=== PATIENT | female | born 1950 | race Caucasian/White ===

== ENCOUNTER 2022-02-28 13:21 | Outpatient (CLI) | payer MEDICARE, SELFPAY ==
[2022-02-28 16:09] LABS: Chloride* 102 mmol/L (96-114); Potassium* 4.2 mmol/L (3.6-5.1); Sodium* 137 mmol/L (135-149)
[2022-02-28 16:11] LABS: Cholesterol* 208 mg/dL (90-199); Creatinine* 0.7 mg/dL (0.5-1.5); Estimated Glomerular Filt Rate 94 ml/min
[2022-02-28 16:12] LABS: Blood Urea Nitrogen* 18 mg/dL (7-30); Calcium* 9.8 mg/dL (8.4-10.6); Carbon Dioxide* 27 mmol/L (20-32); Glucose* 110 mg/dL (60-115); Triglycerides* 134 mg/dL (40-149)
[2022-02-28 16:13] LABS: HDL Cholesterol* 94 mg/dL (>=50); LDL Cholesterol Calculated 87 mg/dL (<100)
== END 2022-02-28 13:22 | disposition home or self-care (01) ==
PROVIDERS: PCP Family Medicine; Visit Provider Family Medicine
DX: Z01.818 Encounter for other preprocedural examination (principal); Z13.6 Encounter for screening for cardiovascular disorders
CPT/HCPCS: 80048; 80061

== ENCOUNTER 2022-03-05 09:28 | Emergency (ER) | payer MEDICARE, SELFPAY ==
[2022-03-05 09:45] VITALS: BP 119/80; PULSE 72; RESP 18; TEMP 37.4; O2SAT 97; BMI 22.8
--- NOTE | 2022-03-05 09:53 | ED.GENADULT ---
HPI - General Adult General Time Seen by Provider: 09:53 Date Seen: 03/05/22 Chief complaint: Extremity Pain/Injury, Lower Stated complaint: Knee pain after surgery Time Seen by Provider: 03/05/22 09:52 Source: patient and RN notes reviewed Mode of arrival: ambulatory Limitations: no limitations History of Present Illness HPI narrative: Patient is a 71-year-old female coming in with right knee pain that is quite severe. She had arthroscopic knee surgery and meniscectomy on . She states she did have a block. She felt it was wearing off yesterday morning. She did walk some yesterday. By last night her knee pain was severe, she could not get comfortable. She has Vistaril and Vicodin to take, she took 2 Vicodin last night and it did not touch her knee pain. She thinks she may had some shortness of breath last night but none now. She does have a history of a blood clot about 7 years ago. She is on an 81 mg aspirin daily. Denies any fevers. Her leg has been wrapped since surgery. Patient is a prior OR tech. Related Data Home Medications Medication Instructions Recorded Confirmed multivitamin 1 tab PO QDAY 02/28/22 02/28/22 naproxen sodium 220 mg tablet 220 mg PO BID PRN 02/28/22 02/28/22 (Aleve) hydrocodone 5 mg-acetaminophen 325 tab 03/05/22 mg tablet hydroxyzine pamoate 25 mg capsule mg 03/05/22 Allergies Allergy/AdvReac Type Severity Reaction Status Date / Time Sulfa Antibiotics Allergy Mild Hives Uncoded 02/28/22 12:46 Review of Systems Status of ROS: Reports: 6 or more systems reviewed and unremarkable except as noted in History and below [facility] Medical History (Updated 03/05/22 @ 12:03 by Lena Black MD) Hearing loss History of pulmonary embolism Surgical History (Updated 02/28/22 @ 23:43 by Rico Muro MD) History of reduction mammoplasty (1984) History of tonsillectomy History of total knee replacement (12/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) Status post arthroscopy of left shoulder Status post arthroscopy of right shoulder (05/30/18) Family History (Updated 02/23/22 @ 09:22 by Apolinar Sy) Father Stroke Social History (Updated 02/23/22 @ 09:22 by Apolinar Sy) Narrative: , 2 kids Non-smoker Social EtOH Smoking Status: Never smoker How often do you have a drink containing alcohol: 2-4 times a month AUDIT-C Alcohol total score: 2 Non-prescribed substance use: denies use Little interest or pleasure in doing things: not at all Feeling down, depressed, or hopeless: not at all service: No Exam Const: Vital Signs, click to edit/add: Vital Signs - 24 hr 03/05/22 09:45 Temperature 99.3 F Pulse Rate [Pulse Oximeter] 72 Respiratory Rate 18 Blood Pressure [Ri ght Upper Arm] 119/80 Pulse Oximetry 97 Oxygen Delivery Me thod Room Air Documenting provider has reviewed patient's vital signs: yes Common normals: no apparent distress, average body habitus, oriented x3, no limitations, healthy appearing and alert General appearance: cooperative, comfortable and well kempt HENMT: Common normals: normocephalic, head/scalp atraumatic and hearing grossly normal bilaterally Head and scalp: normocephalic and atraumatic Eye: Common normals: PERRL, EOMs intact bilaterally, conjunctivae normal and no scleral icterus Conjunctiva: conjunctiva(e) normal Pupil: PERRL Neck & C-Spine: Common normals: full ROM, no lymphadenopathy, supple, no meningeal signs, no JVD and thyroid normal Thyroid: thyroid normal Resp: Common normals: normal respiratory effort, no retractions, no use of accessory muscles and clear to auscultation bilaterally Auscultation: clear to auscultation bilaterally Cardio: Common normals: no JVD, regular rate, regular rhythm, S1 normal heart sound, S2 normal heart sound, no gallops, no clicks and no murmurs Rate: regular rate Rhythm: regular rhythm Heart sounds: S1 normal and S2 normal Extremity: Other: Her Karel wraps were removed. The dressing over the right knee was removed. There was some dried blood within the dressing in on the medial side of the knee. On removal of the dressings, she has 2 port sites medially and laterally over the knee joint. There is ecchymosis anteriorly over the knee. She is able to straight leg raise. She has some mild tenderness throughout the anterior oral lateral and medial joint line. There is some mild warmth but nothing in about of what I would expect post procedure. There is no significant calf tenderness or lower extremity pain or swelling. She has normal sensation distally and no swelling in the foot. Neuro: Common normals: oriented x3 Sensorium/orientation: alert Meningeal signs: no meningeal signs Psych: Appearance: well kempt Course Course Hospital Course: We will obtain Doppler of this right lower extremity to rule out blood clot. Will give her 5 mg oxycodone and see if that helps with the pain. I do wonder if the block just Donald wore off last night and that is where the pain started to increase. We will see if the oxycodone helps. Will also get a baseline CBC and C reactive protein but doubt infection at this time. Vital Signs Vital signs: Initial Vital Signs Temperature 99.3 F 03/05/22 09:45 Temperature Source Temporal Artery Scan 03/05/22 09:45 Pulse Rate 72 03/05/22 09:45 Respiratory Rate 18 03/05/22 09:45 Blood Pressure 119/80 03/05/22 09:45 Blood Pressure Mean 93 03/05/22 09:45 Blood Pressure Position Supine 03/05/22 09:45 Pulse Oximetry 97 03/05/22 09:45 Oxygen Delivery Method 03/05/22 09:45 Vital Signs Temperature 99.3 F 03/05/22 09:45 Pulse Rate 72 03/05/22 09:45 Respiratory Rate 18 03/05/22 09:45 Blood Pressure 119/80 03/05/22 09:45 Pulse Oximetry 97 03/05/22 09:45 Oxygen Delivery Method 03/05/22 09:45 Temperature 99.3 F 03/05/22 09:45 Pulse Rate 72 03/05/22 09:45 Respiratory Rate 18 03/05/22 09:45 Blood Pressure 119/80 03/05/22 09:45 Pulse Oximetry 97 03/05/22 09:45 Oxygen Delivery Method 03/05/22 09:45 Medical Decision Making Lab Data Lab results reviewed: Yes I reviewed the patient's lab results Labs: Lab Results 03/05/22 03/05/22 Range/Units 10:20 10:20 WBC 7.17 (4.50-11.00) K/uL RBC 4.53 (4.00-5.20) m/uL Hgb 13.3 (12.0-16.0) gm/dL Hct 40.5 (33.0-51.0) % MCV 89 (80-100) fL MCH 29 (26-34) pg MCHC 33 (32-36) gm/dL RDW Coeff of Elpidio 12.8 (11.5-15.5) % Plt Count 203 (140-440) K/uL Neut % (Auto) 73.2 H (42.0-72.0) % Lymph % (Auto) 9.8 L (20-44) % [place] % (Auto) 16.7 H (0.0-11.0) % Eos % (Auto) 0.1 (0.0-7.0) % Baso % (Auto) 0.1 (0.0-3.0) % Neut # (Auto) 5.20 (1.7-7.0) K/uL Lymph # (Auto) 0.70 L (0.90-2.90) K/uL [place] # (Auto) 1.20 H (0.00-0.90) K/UL Eos # (Auto) 0.01 (0.00-0.50) K/uL Baso # (Auto) 0.01 (0.00-0.30) K/uL Abs Immat Gran (auto) 0.01 (0.00-0.30) K/uL C-Reactive Protein 2.8 H (0.5-1.0) mg/dL Imaging Data Venous US: Attestation: I have reviewed the pertinent imaging results. Radiologist's impression: Patient: JASMEET JUNG Facility:?[facility] Patient ID:?[id number] Site Patient ID:?[id number]. Site :?[id number] Study:?US Extremity Right LEV RT-03/05/2022 11:09:01 AM Ordering Physician:Chani Paredes Final Report: CLINICAL HISTORY: Increasing pain right knee and right calf; recent right knee surgery TECHNIQUE: A compression venous ultrasound exam was performed of the right lower extremity using vickers-scale imaging, color Doppler and spectral Doppler analysis. FINDINGS: Sonographic imaging of the right lower extremity demonstrates normal compressibility and color Doppler venous blood flow within the common femoral vein, deep femoral vein, and the proximal greater saphenous vein. Within the thigh, the femoral vein is patent and compressible. At a lower level, the popliteal and posterior tibial veins also show normal compressibility and color Doppler venous blood flow. Limited imaging of the contralateral groin demonstrates a normal spectral waveform and color Doppler venous blood flow within the left common femoral vein. Right knee effusion IMPRESSION: Normal venous ultrasound exam. No evidence of deep vein thrombosis within the right lower extremity. Dictated by Ricardo Rankin MD @ 03/05/2022 11:35:07 AM (Electronic Signature) Critical Care Time Critical Care Time Critical Care Time: No Discharge Plan Discharge Clinical Impression: Post-operative pain Patient Disposition: Home, Self-Care Condition: Stable Instructions: Pain Management After Surgery (DC) Additional Instructions: Continue to follow-up postoperative restrictions and wound management as per your surgeon. Can use oxycodone initially, a few pills were prescribed from [facility]. If you need more, you will need to get this from her surgeon. When you are able, transition back to the Vicodin from the oxycodone. Can use Tylenol with the oxycodone per Tylenol bottle directions. Note that Vicodin has Tylenol in it though. Can continue with ibuprofen as per bottle directions as well. Ice. Activity Detail: As per your surgeon Prescriptions: No Action multivitamin Tablet 1 tab PO QDAY naproxen sodium [Aleve] 220 mg tablet 220 mg PO BID PRN hydrocodone-acetaminophen 5-325 mg tablet Label Comments: TAKE 1-2 TABLETS BY MOUTH EVERY 4-6 HOURS NEEDED FOR PAIN. MAX 8 TABLETS PER DAY hydroxyzine pamoate 25 mg capsule Label Comments: TAKE 1 TO 2 CAPSULES BY MOUTH EVERY 4 TO 6 HOURS NEEDED FOR MUSCLE SPASMS Follow Up/Referrals: Rico Muro MD [Primary Care Provider] - Stand Alone Forms: MyHealth Info Instructions
--- NOTE | 2022-03-05 10:01 | CRLHL7_ITS ---
For Patients: As a result of the Century Cures Act, medical imaging exams and procedure reports are released immediately into your electronic medical record. You may view this report before your referring provider. If you have questions, please contact your health care provider. CLINICAL HISTORY: Increasing pain right knee and right calf; recent right knee surgery TECHNIQUE: A compression venous ultrasound exam was performed of the right lower extremity using vickers-scale imaging, color Doppler and spectral Doppler analysis. FINDINGS: Sonographic imaging of the right lower extremity demonstrates normal compressibility and color Doppler venous blood flow within the common femoral vein, deep femoral vein, and the proximal greater saphenous vein. Within the thigh, the femoral vein is patent and compressible. At a lower level, the popliteal and posterior tibial veins also show normal compressibility and color Doppler venous blood flow. Limited imaging of the contralateral groin demonstrates a normal spectral waveform and color Doppler venous blood flow within the left common femoral vein. Right knee effusion IMPRESSION: Normal venous ultrasound exam. No evidence of deep vein thrombosis within the right lower extremity. Dictated by Ricardo Rankin MD @ 03/05/2022 11:35:07 AM (Electronically Signed)
[2022-03-05] MEDS: OXYCODONE 5 MG TABLET PO (10:16)
[2022-03-05 10:34] LABS: Basophils Absolute Auto 0.01 K/uL (0.00-0.30); Basophils Percent Auto 0.1 % (0.0-3.0); Eosinophils Absolute Auto 0.01 K/uL (0.00-0.50); Eosinophils Percent Auto 0.1 % (0.0-7.0); Hematocrit 40.5 % (33.0-51.0); Hemoglobin* 13.3 gm/dL (12.0-16.0); Immature Granulocytes Abs Auto 0.01 K/uL (0.00-0.30); Lymphocytes Percent Auto 9.8 % (20-44); Mean Corpuscular HGB Conc 33 gm/dL (32-36); Mean Corpuscular Hemoglobin 29 pg (26-34); Mean Corpuscular Volume 89 fL (80-100); Monocytes Percent Auto 16.7 % (0.0-11.0); Neutrophils Percent Auto 73.2 % (42.0-72.0); Platelet Count* 203 K/uL (140-440); RDW Coefficient of Variation % 12.8 % (11.5-15.5); Red Blood Count 4.53 m/uL (4.00-5.20); White Blood Count* 7.17 K/uL (4.50-11.00)
[2022-03-05 10:36] LABS: Slide Review Reflex No
--- NOTE | 2022-03-05 10:46 | PC.NURSE ---
US in room, labs drawn
[2022-03-05 10:50] LABS: C Reactive Protein* 2.8 mg/dL (0.5-1.0)
== END 2022-03-05 12:14 | disposition home or self-care (01) ==
PROVIDERS: Emergency Provider Family Medicine; PCP Family Medicine
DX: G89.18 Other acute postprocedural pain (principal); M25.561 Pain in right knee
CPT/HCPCS: 36415; 85025; 86140; 93971; 99283; A9270

== ENCOUNTER 2023-02-23 08:20 | Outpatient (CLI) | payer MEDICARE, SELFPAY ==
--- NOTE | 2023-02-23 08:25 | W.ANESCHARGE ---
Anesthesia Charges Start Date/Time Anesthesia Start Date: 02/23/23 Anesthesia Start Time: 09:29 Stop Date/Time Anesthesia Stop Date: 02/23/23 Anesthesia Stop Time: 09:51 Summary Extremes of Age - Over 70 or under 1: MDA
--- NOTE | 2023-02-23 09:53 | W.ANESCHARGE ---
Anesthesia Charges Start Date/Time Anesthesia Start Date: 02/23/23 Anesthesia Start Time: 09:29 Stop Date/Time Anesthesia Stop Date: 02/23/23 Anesthesia Stop Time: 09:51
== END 2023-02-23 08:21 | disposition home or self-care (01) ==
LOC: OP CLINIC 08:21
PROVIDERS: PCP Family Medicine; Visit Provider Internal Medicine
DX: Z12.11 Encounter for screening for malignant neoplasm of colon (principal); K57.30 Diverticulosis of large intestine without perforation or abscess without bleeding
CPT/HCPCS: 45378; 811; 812; 99100; J2704

== ENCOUNTER 2023-04-06 09:23 | Outpatient (CLI) | payer MEDICARE, SELFPAY | END 2023-04-06 09:24 | disposition home or self-care (01) | PROVIDERS: PCP Family Medicine; Visit Provider Family Medicine | DX: Z01.818 Encounter for other preprocedural examination (principal); Z13.9 Encounter for screening, unspecified | CPT/HCPCS: 80048; 85025 ==